=== PATIENT | female | born 1995 | race Two or more races ===

== ENCOUNTER 2019-01-23 13:45 | Emergency (ER) | payer MEDICAID ==
[2019-01-23 14:12] VITALS: BP 120/70
[2019-01-23] MEDS ORDERED: CEPHALEXIN 250 MG CAP PO ONE ×2 (14:52→15:00)
== END 2019-01-23 15:01 | disposition home or self-care (01) ==
LOC: ER 13:45
DX: J02.9 Acute pharyngitis, unspecified (principal); R19.7 Diarrhea, unspecified; R00.2 Palpitations; F17.210 Nicotine dependence, cigarettes, uncomplicated; Z59.0 Homelessness